=== PATIENT | female | born 1960 | race Caucasian/White ===

== ENCOUNTER 2016-10-06 18:30 | Emergency (ER) | payer SELFPAY ==
[~2016-10-06] VITALS: Ht 170.2 cm; Wt 88.5 kg
[2016-10-06 18:40] VITALS: BP 135/63
[2016-10-06] MEDS ORDERED: KETOROLAC TROMETH 60MG/2ML VIAL IM ONE (21:00)
== END 2016-10-06 21:15 | disposition home or self-care (01) ==
LOC: ER 18:35
DX: J06.9 Acute upper respiratory infection, unspecified (principal); S76.912A Strain of unspecified muscles, fascia and tendons at thigh level, left thigh, initial encounter; X58.XXXA Exposure to other specified factors, initial encounter; Y93.89 Activity, other specified; Y99.8 Other external cause status; Y92.89 Other specified places as the place of occurrence of the external cause
CPT/HCPCS: 96372; 99283; J1885

== ENCOUNTER 2019-10-17 11:38 | Inpatient (IN) | payer SELFPAY ==
[~2019-10-17] VITALS: Ht 167.6 cm; Wt 106.1 kg
[2019-10-17 13:10] LABS: Urine Bacteria NONE SEEN /hpf (None Seen); Urine Blood 2+ /uL (Negative); Urine Mucus FEW (None Seen); Urine Specific Gravity 1.022 (1.001-1.035); Urine WBC 30 /hpf (0 - 5)
[2019-10-17 13:11] LABS: Basophils # (auto) 0.1 uL; Basophils % (auto) 0.5 % (0.0-2.0); Eosinophils # (auto) 0.2 uL; Eosinophils % (auto) 2.3 % (0.0-7.0); Hematocrit 41.4 % (36.0-46.0); Hemoglobin 14.4 g/dL (12.2-16.2); Lymphocytes # (auto) 1.7 uL; Lymphocytes % (auto) 17.1 % (10.0-50.0); Mean Corpuscular Hemoglobin 31.1 pg (28.0-32.0); Mean Corpuscular Hgb Conc. 34.7 g/dL (32.0-36.0); Mean Corpuscular Volume 89.6 fL (80.0-100.0); Monocytes # (auto) 1.1 uL; Monocytes % (auto) 11.4 % (0.0-12.0); Neutrophils # (auto) 6.8 uL; Neutrophils % (auto) 68.7 % (37.0-80.0); Platelet Count (auto) 313 10^3/uL (140-450); Red Blood Cells 4.62 10^6/uL (4.0-5.20); Red Cell Distribution Width 12.7 % (11.8-14.3); White Blood Cell 9.9 10^3/uL (4.4-10.8)
[2019-10-17 13:32] LABS: Albumin 3.5 g/dL (3.4-5.0); BUN/Creatinine Ratio 7.9; Calcium 8.7 mg/dL (8.5-10.1); Potassium 3.6 mmol/L (3.5-5.1)
[2019-10-17 13:35] LABS: Bilirubin, Total 0.6 mg/dL (0.2-1.0)
[2019-10-17] MEDS ORDERED: AZITHROMYCIN 500MG/ 250ML 250 ML IV ONE (14:00)
[2019-10-17] MEDS ORDERED: cefTRIAXone 1GM/50ML D5W 50 ML IV ONE (14:00)
[2019-10-17] MEDS ORDERED: ALBUTEROL SULF 2.5 MG/0.5ML(0.5%) NEB SOLN NEB ONE (15:45)
[2019-10-17] MEDS ORDERED: IPRATROPIUM BROM 0.5 MG/2.5ML INH SOL NEB ONE (15:45)
[2019-10-17] MEDS ORDERED: hydrALAZINE HCL 20 MG/ML VL IV PRN (17:15)
[2019-10-17] MEDS ORDERED: MORPHINE SULF INJ 2 MG/ML SYRINGE 1ML IV PRN ×2 (17:15)
[2019-10-17] MEDS ORDERED: NITROGLYCERIN 0.4 MG SL TAB SL PRN (17:15)
[2019-10-17] MEDS: ALBUTEROL SULF 2.5 MG/0.5ML(0.5%) NEB SOLN NEB SCH (18:08)
[2019-10-17] MEDS: IPRATROPIUM BROM 0.5 MG/2.5ML INH SOL NEB SCH (18:08)
[2019-10-17] MEDS: HYDROcodone-ACET 5/325MG TAB PO PRN (19:04)
[2019-10-17] MEDS: ACETAMINOPHEN 500 MG TAB PO PRN (20:55)
[2019-10-17 21:02] VITALS: BP 118/64
--- NOTE | 2019-10-17 21:05 | NUR ---
MS admit from ER LOLA SEPULVEDA admitted to tele/MS after SBAR received. Patient oriented to Walter major RN, unit, room, bed, and unit policies regarding patient care and visiting hours. Patient weighed by bedscale and encouraged to call if they need something. All questions and concerns addressed, patient verbalized understanding.
[2019-10-17 21:36] VITALS: BP 109/61
[2019-10-17] MEDS: guaiFENesin-CODEINE Liq 5 ML UD PO PRN (23:02)
[2019-10-18] MEDS: guaiFENesin-CODEINE Liq 5 ML UD PO PRN ×4 (04:26→20:15)
[2019-10-18 05:00] VITALS: BP 145/80
[2019-10-18 06:01] LABS: Basophils # (auto) 0.1 uL; Basophils % (auto) 0.7 % (0.0-2.0); Eosinophils # (auto) 0.3 uL; Eosinophils % (auto) 4.1 % (0.0-7.0); Hematocrit 39.5 % (36.0-46.0); Hemoglobin 13.6 g/dL (12.2-16.2); Lymphocytes # (auto) 1.9 uL; Lymphocytes % (auto) 25.3 % (10.0-50.0); Mean Corpuscular Hemoglobin 30.8 pg (28.0-32.0); Mean Corpuscular Hgb Conc. 34.5 g/dL (32.0-36.0); Mean Corpuscular Volume 89.5 fL (80.0-100.0); Monocytes # (auto) 0.9 uL; Monocytes % (auto) 12.1 % (0.0-12.0); Neutrophils # (auto) 4.4 uL; Neutrophils % (auto) 57.8 % (37.0-80.0); Platelet Count (auto) 285 10^3/uL (140-450); Red Blood Cells 4.41 10^6/uL (4.0-5.20); Red Cell Distribution Width 12.7 % (11.8-14.3); White Blood Cell 7.6 10^3/uL (4.4-10.8)
[2019-10-18] MEDS: IPRATROPIUM BROM 0.5 MG/2.5ML INH SOL NEB SCH ×3 (06:25→18:41)
[2019-10-18] MEDS: ALBUTEROL SULF 2.5 MG/0.5ML(0.5%) NEB SOLN NEB SCH ×3 (06:26→18:41)
[2019-10-18 06:37] LABS: Potassium 3.6 mmol/L (3.5-5.1)
[2019-10-18 06:53] LABS: BUN/Creatinine Ratio 10.8; Calcium 8.9 mg/dL (8.5-10.1)
[2019-10-18 09:00] VITALS: BP 100/54
[2019-10-18] MEDS: AZITHROMYCIN 500MG/ 250ML 250 ML IV SCH (09:45)
[2019-10-18] MEDS: cefTRIAXone 1GM/50ML D5W 50 ML IV SCH (09:45)
[2019-10-18] MEDS: FAMOTIDINE 20 MG TAB PO SCH (09:46)
[2019-10-18] MEDS: HYDROcodone-ACET 5/325MG TAB PO PRN ×2 (10:18→23:31)
[2019-10-18 13:00] VITALS: BP 103/50
[2019-10-18] MEDS ORDERED: LIDOCAINE VISCOUS 2% 15ML UD PO PRN (14:30)
--- NOTE | 2019-10-18 15:10 | NUR ---
Social Service consult regarding Advance Directives. Provided pt with information on Advance Directives and Durable Power of Nail Polish Brush Machine Feeder Form. Pt verbalized understanding and accepted information. Will Contact C.O.D. Audit Clerk for any further concerns or issues.
[2019-10-18 17:00] VITALS: BP 106/72
[2019-10-18 20:00] VITALS: BP 98/60
--- NOTE | 2019-10-18 20:15 | NUR ---
Cough Pt medicated for cough as ordered
[2019-10-18 22:00] VITALS: BP 98/60
[2019-10-18] MEDS: ONDANSETRON HCL 4 MG/2 ML VIAL IV PRN (22:14)
--- NOTE | 2019-10-18 22:14 | NUR ---
Nausea Pt medicated for c/o nausea after meal, medicated as ordered, will continue to monitor. Pt has mild headache, declines pain medication at this time
--- NOTE | 2019-10-18 22:15 | NUR ---
Respiratory culture bulleted to lab
--- NOTE | 2019-10-18 23:35 | NUR ---
Pain Management Pt medicated for c/o headache pain, will continue to monitor. Instructed pt to keep o2 on, pt verbalized understanding
[2019-10-19] MEDS: guaiFENesin-CODEINE Liq 5 ML UD PO PRN ×4 (00:24→20:39)
[2019-10-19] MEDS: ACETAMINOPHEN 500 MG TAB PO PRN (04:23)
[2019-10-19 05:00] VITALS: BP 103/61
[2019-10-19 05:01] LABS: Basophils # (auto) 0.1 uL; Basophils % (auto) 1.1 % (0.0-2.0); Eosinophils # (auto) 0.3 uL; Eosinophils % (auto) 5.4 % (0.0-7.0); Lymphocytes # (auto) 2.4 uL; Lymphocytes % (auto) 38.9 % (10.0-50.0); Mean Corpuscular Hemoglobin 31.1 pg (28.0-32.0); Mean Corpuscular Hgb Conc. 34.9 g/dL (32.0-36.0); Mean Corpuscular Volume 89.1 fL (80.0-100.0); Monocytes # (auto) 0.6 uL; Monocytes % (auto) 10.1 % (0.0-12.0); Neutrophils # (auto) 2.7 uL; Neutrophils % (auto) 44.5 % (37.0-80.0); Platelet Count (auto) 348 10^3/uL (140-450); Red Blood Cells 4.49 10^6/uL (4.0-5.20); Red Cell Distribution Width 12.9 % (11.8-14.3); White Blood Cell 6.1 10^3/uL (4.4-10.8)
[2019-10-19 05:13] LABS: Calcium 9.2 mg/dL (8.5-10.1)
[2019-10-19 05:15] LABS: BUN/Creatinine Ratio 10.4
[2019-10-19] MEDS: IPRATROPIUM BROM 0.5 MG/2.5ML INH SOL NEB SCH ×3 (06:51→19:27)
[2019-10-19] MEDS: ALBUTEROL SULF 2.5 MG/0.5ML(0.5%) NEB SOLN NEB SCH ×3 (06:51→19:27)
--- NOTE | 2019-10-19 07:15 | NUR ---
Opening Shift Note Assumed care of patient, awake and alert. No S/S of distress/SOB or pain. Instructed on POC and to call for assist PRN, will continue to monitor for changes Q1hr and PRN. Fall precautions in place per safety protocol.
[2019-10-19 08:00] VITALS: BP 105/63
[2019-10-19] MEDS: HYDROcodone-ACET 5/325MG TAB PO PRN ×2 (08:44→22:40)
[2019-10-19 09:00] VITALS: BP 105/63
[2019-10-19] MEDS: cefTRIAXone 1GM/50ML D5W 50 ML IV SCH (09:00)
[2019-10-19] MEDS: FAMOTIDINE 20 MG TAB PO SCH (10:01)
[2019-10-19] MEDS: AZITHROMYCIN 500MG/ 250ML 250 ML IV SCH (10:01)
[2019-10-19 13:00] VITALS: BP 109/60
[2019-10-19] MEDS: ONDANSETRON HCL 4 MG/2 ML VIAL IV PRN (14:19)
[2019-10-19 16:48] VITALS: BP 94/68
[2019-10-19 22:08] VITALS: BP 106/67
--- NOTE | 2019-10-20 03:00 | NUR ---
Endorsed care to JENNIFER Edmonds. Patient resting in bed, no distress, sob, or pain noted at this time.
[2019-10-20 05:44] VITALS: BP 107/66
[2019-10-20] MEDS: guaiFENesin-CODEINE Liq 5 ML UD PO PRN ×3 (07:22→19:56)
[2019-10-20] MEDS: IPRATROPIUM BROM 0.5 MG/2.5ML INH SOL NEB SCH ×3 (07:28→19:02)
[2019-10-20] MEDS: ALBUTEROL SULF 2.5 MG/0.5ML(0.5%) NEB SOLN NEB SCH ×3 (07:28→19:02)
[2019-10-20 09:00] VITALS: BP 102/58
[2019-10-20] MEDS: cefTRIAXone 1GM/50ML D5W 50 ML IV SCH (10:10)
[2019-10-20] MEDS: FAMOTIDINE 20 MG TAB PO SCH (10:10)
[2019-10-20] MEDS: AZITHROMYCIN 500MG/ 250ML 250 ML IV SCH (10:10)
--- NOTE | 2019-10-20 10:10 | NUR ---
PASSED MORNING MEDICATIONS, PT TOLERATED WELL. DR. FRAUSTO AT BEDSIDE, PLAN OF CARE DISCUSSED; PT IN AGREEMENT WITH CARE. PT ON ROOM AIR PER MD ORDER. WILL CONTINUE TO MONITOR.
[2019-10-20] MEDS: HYDROcodone-ACET 5/325MG TAB PO PRN ×2 (11:26→19:56)
[2019-10-20 13:00] VITALS: BP 119/50
[2019-10-20 16:44] VITALS: BP 93/57
[2019-10-20 18:58] VITALS: BP 93/57
--- NOTE | 2019-10-20 19:56 | NUR ---
Opening Shift Note Assumed care of patient, awake and alert. No S/S of distress/SOB c/o head ache pain 5/10. Instructed on POC and to call for assist PRN, will continue to monitor for changes Q1hr and PRN.Medicated with [place] one tab.5/325mg.p.o and cough medicine guaifenesin/[place] 10ml.p.o as needed.
[2019-10-20 22:06] VITALS: BP 110/56
[2019-10-21] MEDS: guaiFENesin-CODEINE Liq 5 ML UD PO PRN ×2 (02:58→14:39)
[2019-10-21 05:29] VITALS: BP 105/56
[2019-10-21] MEDS: ALBUTEROL SULF 2.5 MG/0.5ML(0.5%) NEB SOLN NEB SCH ×2 (06:45→11:46)
[2019-10-21] MEDS: IPRATROPIUM BROM 0.5 MG/2.5ML INH SOL NEB SCH ×2 (06:45→11:46)
--- NOTE | 2019-10-21 07:13 | NUR ---
Care report given to Andreas Edmonds, patient is resting no distress.
[2019-10-21 08:59] VITALS: BP 101/52
[2019-10-21] MEDS: FAMOTIDINE 20 MG TAB PO SCH (09:55)
[2019-10-21] MEDS: AZITHROMYCIN 500MG/ 250ML 250 ML IV SCH (09:55)
[2019-10-21] MEDS: cefTRIAXone 1GM/50ML D5W 50 ML IV SCH (09:55)
--- NOTE | 2019-10-21 11:26 | NUR ---
PT REQUESTING TO BE DISCONNECTED FROM [facility]. PT STATES SHE FEELS PAIN THROUGHOUT RIGHT ARM, IV FLUSHING WELL WITH NO S/S OF INFILTRATION OR LEAKAGE. CALL LIGHT WITHIN REACH.
[2019-10-21 13:00] VITALS: BP 113/94
[2019-10-21] MEDS: ACETAMINOPHEN 500 MG TAB PO PRN (14:54)
[2019-10-21 15:31] VITALS: BP 113/94
--- NOTE | 2019-10-21 16:15 | NUR ---
DISCHARGE INSTRUCTIONS PROVIDED TO PT. PT VERBALIZED UNDERSTANDING FOR PRESCRIPTION ORDERS AND FOLLOW UP APPOINTMENT WITH PCP. EDUCATIONAL MATERIAL PROVIDED, ALL QUESTIONS AND CONCERNS ADDRESSED. IV CATHETER DC'D CATHETER INTACT, NO PHLEBITIS, HEMATOMA. PT SAFELY ESCORTED OUT OF UNIT VIA WHEELCHAIR. NO S/S OF DISTRESS.
[2019-10-21 17:11] VITALS: BP 106/69
== END 2019-10-21 16:15 | disposition home or self-care (01) | DRG 193 ==
LOC: ER 11:38 → OVERFLOW 11:39 → WEST WING 21:05
PROVIDERS: ADMIT Nurse Practitioner Acute Care; ATTEND Internal Medicine
DX: J18.9 Pneumonia, unspecified organism (principal); N17.0 Acute kidney failure with tubular necrosis; N30.00 Acute cystitis without hematuria; J45.909 Unspecified asthma, uncomplicated; M94.0 Chondrocostal junction syndrome [Tietze]; E66.9 Obesity, unspecified; R06.03 Acute respiratory distress; N18.9 Chronic kidney disease, unspecified; R09.1 Pleurisy; Z87.442 Personal history of urinary calculi; Z90.710 Acquired absence of both cervix and uterus; Z68.37 Body mass index [BMI] 37.0-37.9, adult; R51 Headache
CPT/HCPCS: 36415; 70450; 71045; 71046; 80048; 80053; 81001; 83605; 84443; 85025; 87040; 87070; 87086; 87205; 87804; 93005; 93970; 94640; G0378; J0696; J2405